=== PATIENT | female | born 1950 | race Caucasian/White ===

== ENCOUNTER 2025-04-04 12:06 | Outpatient (CLI) | payer MEDICARE, SELFPAY ==
[2025-04-04 12:46] VITALS: BP 176/68; PULSE 80; RESP 18; O2SAT 97; BMI 25.6
[2025-04-04 13:19] VITALS: BP 148/72; PULSE 83; RESP 18; O2SAT 97
[2025-04-04] MEDS: 0.9% Saline Lock 10 ML Syringe IV (13:19)
[2025-04-04] MEDS: Nitroglycerin SL (ED/IMG/CATH) 0.4 MG TABLET SL (13:19)
--- NOTE | 2025-04-04 13:25 | CT_ITS ---
PROCEDURE: LIMITED CHEST CT CARDIAC ONLY 04/04/2025 REASON FOR EXAM: HEART FAILURE TECHNIQUE: LIMITED CHEST CT CARDIAC ONLY Coronal and Sagittal reconstruction series were provided. CONTRAST: Isovue-300 100 mL. One or more dose reduction techniques were used (e.g., Automated exposure control, adjustment of the mA and/or kV according to patient size, use of iterative reconstruction technique). RADIATION DOSE SUMMARY: CTDlvol: 28 mGy DLP: 962.65 mGycm COMPARISON: None FINDINGS: Calcified subcarinal lymph node. Calcified left hilar lymph node. No coronary artery calcification is seen. The heart is not enlarged. No pericardial effusion. Fatty infiltration of the liver. CT/Limited Chest CT Cardiac Only IMPRESSION: No evidence of coronary artery calcification. Reading Location: [place] [id number]
--- NOTE | 2025-04-07 07:51 | CCTA.WCONT ---
CCTA w/Cont Coronary Arteries Date of Study:: 04/04/25 Heart Failure Coronary Calcium Scoring: High-resolution Computed Tomographic imaging of the chest was performed on [04/04/25 ], with particular attention paid to the coronary arteries. Intravenous contrast agent was administered per protocol and images reconstructed and displayed. LEFT MAIN CORONARY ARTERY: Arises from the left coronary cusp and appears to be normal [] LEFT ANTERIOR DESCENDING CORONARY ARTERY: Arises from the left main coronary artery and has minimal atherosclerotic plaquing noted. No high-grade stenosis is present. [] LEFT CIRCUMFLEX CORONARY ARTERY: Arises from the left coronary cusp no significant atherosclerotic plaquing is noted in this vessel. [] RIGHT CORONARY ARTERY: Dominant right coronary artery with no significant atherosclerotic plaquing noted. [] THORACIC AORTA: [] PULMONARY ARTERY: [] LEFT ATRIUM/APPENDAGE: [] MITRAL VALVE: [] AORTIC VALVE: [] LEFT VENTRICLE: [] CORONARY CALCIUM SCORE: Not performed [] Calcium Scoring Interpretation: Different methods to categorize the overall amount of coronary plaque. Overall amount CAC SIS Visual of coronary plaque P1 Mild -100 <2 1-2 vessels with mild amount of plaque P2 Moderate 101-300 3-4 1-2 vessels with moderate amount, 3 vessels with mild amount of plaque P3 Severe 301-999 5-7 3 vessels with moderate amount, 1 vessel with severe amount of plaque P4 Extensive >1000 >8 2-3 vessels with severe amount of plaque Conclusion: CT angiogram with no obvious high-grade stenosis present.
== END 2025-04-04 23:59 | disposition home or self-care (01) ==
PROVIDERS: PCP Internal Medicine Infectious Disease; Referring Provider Internal Medicine Cardiovascular Disease; Visit Provider Internal Medicine Cardiovascular Disease
DX: I25.10 Atherosclerotic heart disease of native coronary artery without angina pectoris (principal); I50.9 Heart failure, unspecified; E78.5 Hyperlipidemia, unspecified
CPT/HCPCS: 75574; 76380; Q9967; A4216